=== PATIENT | female | born 2000 | race Hispanic/Latino ===

== ENCOUNTER 2022-09-14 02:32 | Emergency (ER) | payer BC, SELFPAY ==
[2022-09-14] VITALS (9 sets, daily range): BP systolic 96–118; BP diastolic 60–88; PULSE 82–107; RESP 13–20; TEMP 36.4–36.6; O2SAT 97–100
--- NOTE | 2022-09-14 02:47 | ED.GENADULT ---
HPI - General Adult General Chief complaint: Alcohol <Jeffery Galvez MD - Last Filed: 09/14/22 07:09> Stated complaint: etoh <Jeffery Galvez MD - Last Filed: 09/14/22 07:09> Time Seen by Provider: 09/14/22 08:36 <Jeffery Galvez MD - Last Filed: 09/14/22 07:09> History of Present Illness HPI narrative: Patient 23-year-old female who presents the emergency department with chief complaint of acute alcohol intoxication patient was found sitting in the lobby of her dorm room and after she was passed out on a couch and vomiting on herself. EMS reported no signs of trauma patient actively vomited several times prior to arrival to the emergency department. History is limited due to altered mental status <Jeffery Galvez MD - Last Filed: 09/14/22 07:09> Related Data Allergies/adverse reactions: Allergies Allergy/AdvReac Type Severity Reaction Status Date / Time No Known Allergies Allergy Verified 09/14/22 08:28 <Jeffery Galvez MD - Last Filed: 09/14/22 07:09> Review of Systems Review of Systems: A 10 system review of systems was completed on the patient and is negative except for what is stated in the HPI. Nursing and ancillary documentation was reviewed. <Jeffery Galvez MD - Last Filed: 09/14/22 07:09> Exam Narrative: GENERAL: Well-appearing, well-nourished, and in no acute distress. HEAD: Normocephalic, atraumatic. EYES: PERRLA and EOMI. ENT: Nares clear, no rhinorrhea or epistaxis. Mucous membranes moist. NECK: Supple. CHEST: Clear to auscultation. No respiratory distress. HEART: Regular rate and rhythm. No murmur heard. Normal peripheral pulses. ABDOMEN: Soft, nontender, nondistended, normal active bowel sounds. EXTREMITIES: Normal range of motion. No edema. SKIN: Warm, dry, no rash. NEURO: No focal deficits. Alert and oriented x3. PSYCH: Normal mood and affect. <Jeffery Galvez MD - Last Filed: 09/14/22 07:09> Course Course Emergency Course: 0700. General myself at shift change seen evaluate myself currently resting in bed able to answer basic questions [id number] patient is awake and alert x4 able to get up and ambulate in the emergency department no difficulty. States she was drinking vodka last night. Patient's friend is present and able to take the patient home.. Patient states that she is ready for discharge at this time Discussed with patient results of workup and diagnosis. Discussed need for follow-up with primary care, proper use of medication, and reasons to return to the emergency department. Patient understands and agrees to current treatment plan <Piyush Rae DO - Last Filed: 09/14/22 09:43> Vital Signs Vital signs: Vital Signs Temperature 97.6 F 09/14/22 02:32 Pulse Rate 82 09/14/22 02:32 Respiratory Rate 17 09/14/22 02:32 Pulse Oximetry 99 09/14/22 02:32 Oxygen Delivery Room Air 09/14/22 02:32 Temperature 98 F 09/14/22 09:37 Pulse Rate 86 09/14/22 09:37 Respiratory Rate 20 09/14/22 09:37 Blood Pressure 114/83 09/14/22 09:37 Pulse Oximetry 100 09/14/22 09:37 Oxygen Delivery Room Air 09/14/22 02:32 <Jeffery Galvez MD - Last Filed: 09/14/22 07:09> Vital Signs Temperature 97.6 F 09/14/22 02:32 Pulse Rate 82 09/14/22 02:32 Respiratory Rate 17 09/14/22 02:32 Pulse Oximetry 99 09/14/22 02:32 Oxygen Delivery Room Air 09/14/22 02:32 Temperature 98 F 09/14/22 09:37 Pulse Rate 86 09/14/22 09:37 Respiratory Rate 20 09/14/22 09:37 Blood Pressure 114/83 09/14/22 09:37 Pulse Oximetry 100 09/14/22 09:37 Oxygen Delivery Room Air 09/14/22 02:32 <Piyush Rae DO - Last Filed: 09/14/22 09:43> Medical Decision Making MDM Narrative Medical decision making narrative: Differential diagnosis includes alcohol intoxication, other substance intoxication, altered mental status, trauma
[2022-09-14] MEDS: SODIUM CHLORIDE 0.9% IV 1,000 ML 999 ML IV CONT (02:49)
[2022-09-14] MEDS: ONDANSETRON INJ 4 MG/2 ML VIAL IV PUSH (02:49)
[2022-09-14 03:09] LABS: Basophils Percent Auto 0.5 % (0.2-1.2); Eosinophils Percent Auto 0.1 % (0-4.4); Hematocrit 34.6 % (37.0-47.0); Hemoglobin 11.5 g/dL (12.0-15.0); Immature Granulocyte Absolute 0.03 K/mm3 (0.00-0.031); Immature Granulocyte Percent A 0.3 % (0-0.5); Lymphocytes Absolute Auto 1.95 K/mm3 (0.9-3.2); Lymphocytes Percent Auto 22.7 % (18.3-44.2); Mean Corpuscular HGB Conc 33.2 g/dl (32-36); Mean Corpuscular Hemoglobin 31.8 pg (26-34); Mean Corpuscular Volume 95.6 fl (80-100); Mean Platelet Volume 8.6 fl (7.4-10.4); Monocytes Absolute Auto 0.5 K/mm3 (0.1-0.6); Monocytes Percent Auto 5.8 % (2.6-8.5); Neutrophils Absolute Auto 6.1 K/mm3 (1.3-6.7); Neutrophils Percent Auto 70.6 % (45.5-73.1); Platelet Count Result 361 k/mm3 (150-375); Red Blood Count 3.62 M/mm3 (4.2-5.4); Red Cell Distribution Width 11.8 % (11.5-14.5); White Blood Count 8.6 K/mm3 (4.5-10.0)
[2022-09-14 03:34] LABS: Alanine Aminotransferase 16 U/L (6-35); Albumin Level 3.9 g/dL (3.5-5.1); Alkaline Phosphatase 90 U/L (38-126); Anion Gap 7 mmol/L (8-16); Aspartate Amino Transferase 20 U/L (14-36); Bilirubin,Total 0.2 mg/dL (0.2-1.3); Blood Urea Nitrogen 12 mg/dL (7-17); Calcium 7.6 mg/dL (8.4-10.2); Carbon Dioxide 23 mmol/L (22-30); Chloride 109 mmol/L (98-107); Estimated Glomerular Filt Rate > 60; Ethanol 281 mg/dL (<10); Glucose 129 mg/dL (65-110); Potassium 3.3 mmol/L (3.4-5.0); Sodium 139 mmol/L (137-145)
[2022-09-14 03:57] LABS: Appearance Urine Clear (Clear); Bilirubin Urine Negative (Negative); Blood Urine 2+ (Negative); Color Urine Yellow (Yellow); Glucose Urine UA Negative (Negative); Ketones Urine Negative (Negative); Leukocyte Esterase Ur Negative LEU/UL (Negative); Nitrate Urine Negative (Negative); Protein Urine Negative (Negative); Urobilinogen Urine 0.2 mg/dL (<2.0)
[2022-09-14 03:58] LABS: Mucus Urine Rare /lpf; Squamous Epithelial Cell Urine Rare /hpf (Few); WBC Urine 0-3 /hpf
[2022-09-14 04:04] LABS: Add Urine Microscopic? YES
[2022-09-14 04:13] LABS: Amphetamine Screen Urine Negative (Negative); Barbiturate Screen Urine Negative (Negative); Benzodiazepines Screen Urine Negative (Negative); Cannabinoid Screen Urine Negative (Negative); Cocaine Screen Urine Negative (Negative); Methadone Screen Urine Negative (Negative); Opiate Screen Urine Negative (Negative); Phencyclidine Screen Urine Negative (Negative)
--- NOTE | 2022-09-14 07:45 | PC.NURSE ---
pt. can state full name; gave friend's name Ramana Hernadez and phone number [phone]. Pt. able to work her cell phone and bring up this number. Pt. ambulated to bathroom with supervision. Pt. asking about last night, pt. states she was drinking vodka.
--- NOTE | 2022-09-14 08:20 | PC.NURSE ---
Patient was sleeping, but arousable to voice. Patient was able to tell me her , the year and month, and where she was. Patient was able to complete [place] screening at this point. Patient requested more water at this time.
--- NOTE | 2022-09-14 09:40 | PC.NURSE ---
Patient is speaking with friend at bedside and requesting water. Patient is A&Ox4 and has a GCS of 15.
== END 2022-09-14 10:15 | disposition home or self-care (01) ==
PROVIDERS: Emergency Medicine; Emergency Provider Emergency Medicine
DX: F10.120 Alcohol abuse with intoxication, uncomplicated (principal); Y90.8 Blood alcohol level of 240 mg/100 ml or more
CPT/HCPCS: 36415; 51701; 80053; 80307; 81001; 81025; 85025; 96361; 96374; 99284; J2405; J7030